=== PATIENT | female | born 1945 | race Caucasian/White ===

== ENCOUNTER 2017-01-19 15:08 | Emergency (ER) | payer MEDICARE, OTHER ==
[2017-01-19 15:33] VITALS: RESP 18; TEMP 97.9; O2SAT 99
--- NOTE | 2017-01-19 16:23 | C.PDOC ---
Time Seen by Provider: 01/19/17 16:07 Chief Complaint (Nursing): Eye Problem Past Medical History Vital Signs: Last Vital Signs Temp 97.9 F 01/19/17 15:30 Pulse 82 01/19/17 15:30 Resp 18 01/19/17 15:30 BP 121/72 01/19/17 15:30 Pulse Ox 99 01/19/17 15:30 - Medical History PMH: Arthritis, Asthma, Hypercholesterolemia Surgical History: Cholecystectomy Family History: States: Unknown Family Hx - Social History Hx Tobacco Use: No Hx Alcohol Use: No Hx Substance Use: No - Immunization History Hx Tetanus Toxoid Vaccination: No Hx Influenza Vaccination: No Hx Pneumococcal Vaccination: No ED Course And Treatment O2 Sat by Pulse Oximetry: 99 Disposition Counseled Patient/Family Regarding: Diagnosis, Need For Followup, Rx Given - Disposition Referrals: Neeraj Hamilton MD [Staff Provider] - Disposition: HOME/ ROUTINE Disposition Time: 16:22 Condition: GOOD Prescriptions: Erythromycin 0.5% [Erythromycin 0.5% Oint] 3.5 gm OP Q4 #1 tube Instructions: Meri (ED) Print Language: COMORAN - Clinical Impression Clinical Impression: Meri
--- NOTE | 2017-01-19 16:25 | C.PDOC ---
History Of Present Illness 71 y/o female presents to the ED with complains of redness and pain to left middle eyelid x4 days. Pt denies discharge, itching or fever. Time Seen by Provider: 01/19/17 16:07 Chief Complaint (Nursing): Eye Problem History Per: Patient History/Exam Limitations: no limitations Onset/Duration Of Symptoms: Days Current Symptoms Are (Timing): Still Present Injury To Eye?: No Severity: Mild Quality: "Pain" Associated Symptoms: Swelling. denies: Decreased Vision, Discharge From Eye Recent travel outside of the [place]: No Past Medical History Reviewed: Historical Data, Nursing Documentation, Vital Signs Vital Signs: Last Vital Signs Temp 97.9 F 01/19/17 15:30 Pulse 84 01/19/17 16:30 Resp 18 01/19/17 16:30 BP 120/76 01/19/17 16:30 Pulse Ox 99 01/19/17 16:30 - Medical History PMH: Arthritis, Asthma, Hypercholesterolemia Surgical History: Cholecystectomy Family History: States: Unknown Family Hx - Social History Hx Tobacco Use: No Hx Alcohol Use: No Hx Substance Use: No - Immunization History Hx Tetanus Toxoid Vaccination: No Hx Influenza Vaccination: No Hx Pneumococcal Vaccination: No Review Of Systems Except As Marked, All Systems Reviewed And Found Negative. Constitutional: Negative for: Fever, Chills Eyes: Positive for: Other (redness and pain to left middle eyelid, no discharge) . Negative for: Vision Change Physical Exam - Physical Exam Appears: Non-toxic, No Acute Distress Skin: Warm, Dry, No Rash Head: Atraumatic, Normacephalic Eye(s): bilateral: PERRL, EOMI, right: Normal Inspection, left: Other (stye to left upper middle eyelid; conjunctiva clear, no discharge) Neurological/Psych: Oriented x3 ED Course And Treatment O2 Sat by Pulse Oximetry: 99 (on room air) Pulse Ox Interpretation: Normal Medical Decision Making Medical Decision Making: Discharged pt home with abx and advised warm compresses. Return to ED if worsening symptoms. Disposition Counseled Patient/Family Regarding: Diagnosis, Need For Followup, Rx Given - Disposition Referrals: Neeraj Hamilton MD [Staff Provider] - Disposition: HOME/ ROUTINE Disposition Time: 16:30 Condition: GOOD Prescriptions: Erythromycin 0.5% [Erythromycin 0.5% Oint] 3.5 gm OP Q4 #1 tube Instructions: Meri (ED) Print Language: TURKMEN - Clinical Impression Clinical Impression: Meri - Francesibe Statement The provider has reviewed the documentation as recorded by the Francesibno Ngo Provider Attestation: All medical record entries made by the Francesibe were at my direction and personally dictated by me. I have reviewed the chart and agree that the record accurately reflects my personal performance of the history, physical exam, medical decision making, and the department course for this patient. I have also personally directed, reviewed, and agree with the discharge instructions and disposition.
[2017-01-19 16:31] VITALS: BP 120/76; PULSE 84
== END 2017-01-19 16:31 | disposition home or self-care (01) ==
LOC: C.ER 15:08
DX: H00.014 Hordeolum externum left upper eyelid (principal)